=== PATIENT | female | born 1970 | race Caucasian/White ===

== ENCOUNTER 2018-06-14 20:05 | Emergency (ER) | payer OTHER, SELFPAY ==
[2018-06-14 20:11] VITALS: BP 140/95; PULSE 93; RESP 14; TEMP 36.2; O2SAT 99; BMI 37.1
--- NOTE | 2018-06-14 20:25 | ED.SKABFB ---
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 She states that she has a history of cystic acne and gets the lesions frequently that swell up, sometimes requiring drainage the. She states that this lesion started on Sunday and was small more like a pimple, has been enlarging and more tender and she thinks it may need to be drained. She has not had a fever or any other new symptoms. Redness has gotten somewhat worse though not more pronounced particularly today. Related Data Home Medications Medication Instructions Recorded Confirmed bupropion HCl 300 mg PO QAM 06/14/18 06/14/18 Allergies Allergy/AdvReac Type Severity Reaction Status Date / Time No Known Drug Allergies Allergy Verified 06/14/18 20:17 Review of Systems <Ivonne Mercado PA-C - Last Filed: 06/14/18 21:55> Review of Systems ROS Unobtainable: All systems reviewed & are unremarkable except as noted in HPI and below PFSH <Ivonne Mercado PA-C - Last Filed: 06/14/18 21:55> Medical History Cystic acne (Resolved) Surgical History Status post cholecystectomy (Chronic) Social History Smoking Status: Never smoker Social History Smoking Status: Never smoker Exam <Ivonne Mercado PA-C - Last Filed: 06/14/18 21:55> Narrative Exam Narrative: GENERAL APPEARANCE: Patient sitting comfortably, in no distress. LUNGS: Clear to auscultation bilaterally. HEART: Rate and rhythm regular without murmur, normal S1 and S2, no S3 or S4. DERMATOLOGIC: Left abdomen just lateral to midline and fear your to the umbilicus there a pink erythematous patch, cool to touch, approximately 3.5 cm in diameter that is moderately fluctuant, mildly tender. No pustule visible Initial Vital Signs Initial Vital Signs: Vital Signs Temperature 97.1 F L 06/14/18 20:11 Pulse Rate 93 H 06/14/18 20:11 Respiratory Rate 14 06/14/18 20:11 Blood Pressure 140/95 H 06/14/18 20:11 Pulse Oximetry 99 06/14/18 20:11 <Pascual Bai MD - Last Filed: 06/15/18 02:34> Initial Vital Signs Initial Vital Signs: Vital Signs Temperature 97.1 F L 06/14/18 20:11 Pulse Rate 93 H 06/14/18 20:11 Respiratory Rate 14 06/14/18 20:11 Blood Pressure 140/95 H 06/14/18 20:11 Pulse Oximetry 99 06/14/18 20:11 Procedures <Ivonne Mercado PA-C - Last Filed: 06/14/18 21:55> Abscess I/D Site: abdomen Side (if applicable): left Local Anesthetic: lidocaine 1% and with epi Amount of anesthesia used (mL): 2.5 Technique: incised with #11 blade Irrigation: No Packing used?: none Misc Procedure Additional Comments: Moderate amount of sebaceous material expressed from multiple pockets which were probed with hemostat. Some serosanguineous fluid drained as well. No pus Course <Ivonne Mercado PA-C - Last Filed: 06/14/18 21:55> Vital Signs - 8 hr 06/14/18 20:11 06/14/18 21:25 Temperature 97.1 F L 97.9 F Pulse Rate 93 H 76 Respiratory Rate 14 18 Blood Pressure 140/95 H 139/101 H Pulse Oximetry 99 100 <Pascual Bai MD - Last Filed: 06/15/18 02:34> Vital Signs - 8 hr 06/14/18 20:11 06/14/18 21:25 Temperature 97.1 F L 97.9 F Pulse Rate 93 H 76 Respiratory Rate 14 18 Blood Pressure 140/95 H 139/101 H Pulse Oximetry 99 100 Discharge Plan Departure Patient Disposition: Home Clinical Impression: Infected sebaceous cyst of skin Discharge Date/Time: 06/14/18 21:20 Interventions: ED Discharge Assessment Last Done: 06/14/18 21:25 Instructions: DI for Epidermal Cyst Activity Restrictions/Additional Instructions: The infection on your abdomen appears to be due to a sebaceous cyst (similar to an epidermal cyst). We were able to drain quite a bit of sebaceous material out today, however if this comes back or is bothersome, you may want to consider having the entire cyst capsule removed. Please use a hot pack several times daily this weekend to help keep the area open and help any remaining sebaceous material drained. Please monitor for worsening redness, pain, or new symptoms such as fever, and return if any. Please keep a nonstick dressing on this and wear loose clothing that will not rub on it. Since you want a female provider, you may wish to check and see whether Izabela Love, nurse practitioner at [facility] is taking new patients. Also, ROSE MARIE Ferrell who you met today is seeing new patients at the [facility] clinic here in [facility] Prescriptions: No Action bupropion HCl 300 mg Tablet Extended Release 24 Hr 300 mg PO QAM RF: 0 <Pascual Bia MD - Last Filed: 06/15/18 02:34> Cosign ED Attending Lilibethature Attestation: I was in the ER at the time this patient's care. I was available for consultation or to see the patient directly if needed. I agree with the assessment and treatment plan.
--- NOTE | 2018-06-14 21:11 | PC.NURSE ---
I agree with all assessments and treatments completed by the student nurse. I was available as needed.
[2018-06-14 21:25] VITALS: BP 139/101; PULSE 76; RESP 18; TEMP 36.6; O2SAT 100
== END 2018-06-14 21:20 | disposition home or self-care (01) ==
PROVIDERS: Emergency Provider Internal Medicine
DX: L02.219 Cutaneous abscess of trunk, unspecified (principal); L72.3 Sebaceous cyst; L08.9 Local infection of the skin and subcutaneous tissue, unspecified
CPT/HCPCS: 99282; 99283